=== PATIENT | female | born 1960 | race Caucasian/White ===

== ENCOUNTER 2023-10-02 03:56 | Emergency (ER) | payer OTHER, MEDICAID ==
[~2023-10-02] VITALS: Ht 180.3 cm; Wt 72.2 kg
[2023-10-02] MEDS: LORazepam 2 mg/ml vial IV ONE (04:20)
[2023-10-02] MEDS: normal saline 1000ml 1,000 ML IV ONE ×3 (04:20→05:50)
[2023-10-02] MEDS: ondansetron/PF 4mg/2ml inj IV ONE (04:20)
[2023-10-02 04:26] LABS: BASOPHILS % (AUTO) 0.7 % (0-1); EOSINOPHILS # (AUTO) 0.2 X10'3 (0-0.9); EOSINOPHILS % (AUTO) 2.4 % (0-6); HEMATOCRIT 36.7 % (35.0-45.0); HEMOGLOBIN 12.5 g/dl (12.0-16.0); LYMPHOCYTES # (AUTO) 2.8 X10'3 (1.1-4.8); LYMPHOCYTES % (AUTO) 43.3 % (21-51); MEAN CORPUSCULAR HGB CONC 33.9 g/dL (33.0-36.5); MEAN CORPUSCULAR VOLUME 97.3 FL (78-98); MEAN PLATELET VOLUME 6.7 FL (7.4-10.4); MONOCYTES # (AUTO) 0.4 X10'3 (0-0.9); NEUTROPHILS % (AUTO) 46.6 % (42-75); PLATELET COUNT 239 X10'3 (140-440); RED BLOOD COUNT 3.78 X10'6 (4.20-5.60); RED CELL DISTRIBUTION WIDTH 12.4 % (11.5-14.5); WHITE BLOOD COUNT 6.4 X10'3 (4.5-11.0)
[2023-10-02 04:51] LABS: ALANINE AMINOTRANSFERASE 30 U/L (12-78); ALBUMIN 3.7 G/DL (3.4-5.0); ALBUMIN/GLOBULIN RATIO 1.1 (1.1-1.5); ALKALINE PHOSPHATASE 82 IU/L (46-116); ANION GAP 12 (8-16); ASPARTATE AMINO TRANSFERASE 20 U/L (10-37); BILIRUBIN,TOTAL 0.3 MG/DL (0.1-1.0); BLOOD UREA NITROGEN 16 MG/DL (7-18); BUN/CREATININE RATIO 10.7 (10.0-20.0); CALCIUM 9.2 MG/DL (8.5-10.1); CHLORIDE 107 MMOL/L (99-107); CREATININE 1.49 MG/DL (0.40-0.90); GLUCOSE 129 MG/DL (70-104); LIPASE 35 U/L (16-77); POTASSIUM 3.5 MMOL/L (3.5-5.1); SODIUM 144 MMOL/L (135-145); TOTAL CARBON DIOXIDE 25.2 MMOL/L (24-32); TOTAL PROTEIN 7.1 G/DL (6.4-8.2); eCRCL 43 ML/MIN; eGFR 35 ML/MIN
[2023-10-02] MEDS ORDERED: ONDA-243 PO (05:36)
[2023-10-02 07:24] LABS: BILIRUBIN,URINE NEGATIVE (Neg); CLARITY,URINE CLEAR (Clear); COLOR,URINE YELLOW (Yellow); GLUCOSE, URINE NEGATIVE (Neg); KETONES,URINE NEGATIVE (Neg); LEUKOCYTE ESTERASE ,URINE TRACE (Neg); NITRITES, URINE NEGATIVE (Neg); OCCULT BLOOD,URINE NEGATIVE (Neg); PH,URINE 6.5 (4.8-8.0); PROTEIN,URINE NEGATIVE (Neg)
[2023-10-02 07:31] LABS: UA COLLECTION TYPE STRAIGHT CATH; URINE AMPHETAMINE SCREEN POSITIVE (Neg); URINE BARBITUATE SCREEN NEGATIVE (Neg); URINE BENZODIAZEPINES SCREEN NEGATIVE (Neg); URINE CANNABINOID SCREEN POSITIVE (Neg); URINE COCAINE SCREEN NEGATIVE (Neg); URINE METHADONE SCREEN NEGATIVE (Neg); URINE OPIATE SCREEN NEGATIVE (Neg); URINE PHENCYCLIDINE SCREEN NEGATIVE (Neg)
[2023-10-02 07:32] LABS: BACTERIA,URINE FEW /HPF (Neg); MUCUS STRANDS FEW /LPF (Neg); RBC,URINE 0-2 /HPF (0-2); SQUAMOUS EPITHELIAL CELL,UR FEW /LPF (FEW); WBC,URINE 0-4 /HPF (0-4)
[2023-10-02 11:57] VITALS: BP 102/64; PULSE 77; RESP 16; TEMP 98; O2SAT 99
== END 2023-10-02 11:59 | disposition home or self-care (01) ==
LOC: ER 03:57
DX: R11.2 Nausea with vomiting, unspecified (principal); F41.9 Anxiety disorder, unspecified; R40.4 Transient alteration of awareness; M79.662 Pain in left lower leg; Z79.899 Other long term (current) drug therapy
CPT/HCPCS: 36415; 70450; 80053; 80305; 81001; 83690; 85025; 87077; 87088; 87186; 93971; 96361; 96374; 96375; 99285; J2060; J2405; J7030; A4353; A4615